=== PATIENT | female | born 1995 | race Caucasian/White ===

== ENCOUNTER 2016-08-18 19:15 | Emergency (ER) | payer OTHER ==
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
--- NOTE | 2016-08-18 20:20 | ED MED RECONCILIATION SUMMARY ---
Patient: ROHIT ROSA Medication Reconciliation Report [facility] VisitID: [id number] [address] [place] [address] 21y, F Registration Date/Time: 08/18/2016 Weight: 74.8 kg Height/Length: 66 in. BMI: 26.6 ALLERGIES: Benadryl The patient's Home Medications are listed below: NONE. The source(s) of the original Home Medication information: Not obtained. The following Medications were given to the patient in the Emergency Department: None. The following Medications were prescribed to the patient: Anuradha 60 mg tablets: take 1 orally every 12 hours as needed for itching. Dispense twenty (20). No refills. -- Amairani Falcon A.R.N.P. Kenalog 0.1% Cream: Apply to affected areas 2 times daily as needed. Dispense fifteen (15) gm. No refills. Substitution is permissible. -- Amairani Falcon A.R.N.P.
--- NOTE | 2016-08-18 20:20 | ED MAR SUMMARY ---
..... Medication Administration Record [facility] [address], [place] [id number] Patient: ROHIT ROSA Visit ID: [id number] 21y, F Weight: 74.8 kg Height/Length: 66 in BMI: 26.6 ALLERGIES: Benadryl
--- NOTE | 2016-08-18 20:20 | ED DISCHARGE INSTRUCTIONS ---
Patient: ROHIT ROSA General Instructions [facility] VisitID: [id number] [address] [place] [address] 21y, F Registration Date/Time: 08/18/2016 Irritative contact dermatitis. No urticaria. INSTRUCTIONS Warnings: GENERAL WARNINGS: Return or contact your physician immediately if your condition worsens or changes unexpectedly, if not improving as expected, or if other problems arise. Specifically return if problem worsens. Prescription Medications: Anuradha 60 mg tablets: take 1 orally every 12 hours as needed for itching. Dispense twenty (20). No refills. Kenalog 0.1% Cream: Apply to affected areas 2 times daily as needed. Dispense fifteen (15) gm. No refills. Substitution is permissible. Follow-up: Follow up with your doctor in about one week as needed. Call for an appointment. Summary of care provided to patient. Understanding of the discharge instructions verbalized by patient. ADDITIONAL INFORMATION Dermatitis (Non-Specific) Dermatitis is an inflammation of the skin. The exact cause of your rash is not certain. However, this rash does not appear to be an infection or contagious illness. Taking care of the rash at home should help relieve your symptoms. Home Care: Keep the areas of rash clean by washing it daily. This also helps to keep the skin moist. Use a neutral pH soap such as Dove or Lever 2000. Apply a moisturizing lotion after bathing to prevent dry skin. Avoid skin irritants (wool or silk clothing, grease, oils, some medicines, harsh soaps, and detergents). Wear absorbent, soft fabrics next to the skin rather than rough or scratchy materials. Unless another medicine was prescribed, you may use Hydrocortisone cream (which you can get without a prescription) to reduce the inflammation. Follow Up: Make an appointment with your doctor in the next 1 to 2 weeks if your symptoms do not improve with the above measures. Get Prompt Medical Attention if any of the following occur: Increasing area of redness or pain in the skin Yellow crusts or drainage from the rash Joint pain New rash that appears in other areas of the body Fever of 100.4F (38C) or higher, or as directed by your healthcare provider Fexofenadine Hydrochloride Oral tablet What is this medicine? FEXOFENADINE (fex oh FEN a sisi) is an antihistamine. This medicine is used to treat or prevent symptoms of allergies. It is also used to help reduce itchy skin rash and hives. How should I use this medicine? Take this medicine by mouth with a full glass of water. Follow the directions on the prescription label. You may take this medicine with food or on an empty stomach. Take your medicine at regular intervals. Do not take it more often than directed. You may need to take this medicine for several days before your symptoms improve. Talk to your daub color mixer regarding the use of this medicine in children. While this drug may be prescribed for children as young as 6 years old for selected conditions, precautions do apply. What side effects may I notice from receiving this medicine? Side effects that you should report to your doctor or health livestock caretaker as soon as possible: allergic reactions like skin rash, itching or hives, swelling of the face, lips, or tongue breathing problems chest pain fast heartbeat infection or fever Side effects that usually do not require medical attention (report to your doctor or health livestock caretaker if they continue or are bothersome): cough drowsiness dry or irritated nose, mouth, or throat headache menstrual changes pain stomach upset, nausea What may interact with this medicine? antacids erythromycin grapefruit, apple, or orange juice ketoconazole magnesium-containing products What if I miss a dose? If you miss a dose, take it as soon as you can. If it is almost time for your next dose, take only that dose. Do not take double or extra doses. Where should I keep my medicine? Keep out of the reach of children. Store at room temperature between 20 and 25 degrees C (68 and 77degrees F). Protect from moisture. Throw away any unused medicine after the expiration date. What should I tell my health care provider before I take this medicine? They need to know if you have any of these conditions: kidney disease an unusual or allergic reaction to fexofenadine, terfenadine, other medicines, foods, dyes, or preservatives or trying to get breast-feeding What should I watch for while using this medicine? Visit your doctor or health livestock caretaker for regular checks on your health. Tell your doctor or healthcare professional if your symptoms do not start to get better or if they get worse. Triamcinolone Acetonide, Distilled Water Topical cream What is this medicine? TRIAMCINOLONE (trye am SIN oh lone) is a corticosteroid. It is used on the skin to reduce swelling, redness, itching, and allergic reactions. How should I use this medicine? This medicine is for external use only. Do not take by mouth. Follow the directions on the prescription label. Wash your hands before and after use. Apply a thin film of medicine to the affected area. Do not cover with a bandage or dressing unless your doctor or health livestock caretaker tells you to. Do not use on healthy skin or over large areas of skin. Do not get this medicine in your eyes. If you do, rinse out with plenty of cool tap water. It is important not to use more medicine than prescribed. Do not use your medicine more often than directed. Talk to your daub color mixer regarding the use of this medicine in children. Special care may be needed. Elderly patients are more likely to have damaged skin through aging, and this may increase side effects. This medicine should only be used for brief periods and infrequently in older patients. What side effects may I notice from receiving this medicine? Side effects that you should report to your doctor or health livestock caretaker as soon as possible: burning or itching of the skin dark red spots on the skin infection painful, red, pus filled blisters in hair follicles thinning of the skin, sunburn more likely especially on the face Side effects that usually do not require medical attention (report to your doctor or health livestock caretaker if they continue or are bothersome): dry skin, irritation unusual increased growth of hair on the face or body What may interact with this medicine? Interactions are not expected. What if I miss a dose? If you miss a dose, use it as soon as you can. If it is almost time for your next dose, use only that dose. Do not use double or extra doses. Where should I keep my medicine? Keep out of the reach of children. Store at room temperature between 15 and 30 degrees C (59 and 86 degrees F). Do not freeze. Throw away any unused medicine after the expiration date. What should I tell my health care provider before I take this medicine? They need to know if you have any of these conditions: diabetes infection, like tuberculosis, herpes, or fungal infection large areas of burned or damaged skin skin wasting or thinning an unusual or allergic reaction to triamcinolone, corticosteroids, other medicines, foods, dyes, or preservatives or trying to get breast-feeding What should I watch for while using this medicine? Tell your doctor or health livestock caretaker if your symptoms do not start to get better within one week. Do not use for more than 14 days. Do not use on healthy skin or over large areas of skin. Tell your doctor or health livestock caretaker if you are exposed to anyone with measles or chickenpox, or if you develop sores or blisters that do not heal properly. Do not use an airtight bandage to cover the affected area unless your doctor or health livestock caretaker tells you to. If you are to cover the area, follow the instructions carefully. Covering the area where the medicine is applied can increase the amount that passes through the skin and increases the risk of side effects. If treating the diaper area of a child, avoid covering the treated area with tight-fitting diapers or plastic pants. This may increase the amount of medicine that passes through the skin and increase the risk of serious side effects. You have been given the following additional information: Dermatitis, Non-Specific Fexofenadine Hydrochloride Oral tablet Triamcinolone Acetonide, Distilled Water Topical cream (Electronically signed by Amairani Falcon A.R.NKiley 08/18/2016 20:19)
--- NOTE | 2016-08-18 20:20 | ED MAR SUMMARY ---
..... Medication Administration Record [facility] [address] [id number] Patient: ROHIT ROSA Visit ID: [id number] 21y, F Weight: 74.8 kg Height/Length: 66 in BMI: 26.6 ALLERGIES: Benadryl
--- NOTE | 2016-08-18 20:20 | ED DISCHARGE INSTRUCTIONS ---
Patient: ROHIT ROSA General Instructions [facility] VisitID: [id number] [address] [place] [address] 21y, F Registration Date/Time: 08/18/2016 Irritative contact dermatitis. No urticaria. INSTRUCTIONS Warnings: GENERAL WARNINGS: Return or contact your physician immediately if your condition worsens or changes unexpectedly, if not improving as expected, or if other problems arise. Specifically return if problem worsens. Prescription Medications: Anuradha 60 mg tablets: take 1 orally every 12 hours as needed for itching. Dispense twenty (20). No refills. Kenalog 0.1% Cream: Apply to affected areas 2 times daily as needed. Dispense fifteen (15) gm. No refills. Substitution is permissible. Follow-up: Follow up with your doctor in about one week as needed. Call for an appointment. Summary of care provided to patient. Understanding of the discharge instructions verbalized by patient. ADDITIONAL INFORMATION Dermatitis (Non-Specific) Dermatitis is an inflammation of the skin. The exact cause of your rash is not certain. However, this rash does not appear to be an infection or contagious illness. Taking care of the rash at home should help relieve your symptoms. Home Care: Keep the areas of rash clean by washing it daily. This also helps to keep the skin moist. Use a neutral pH soap such as Dove or Lever 2000. Apply a moisturizing lotion after bathing to prevent dry skin. Avoid skin irritants (wool or silk clothing, grease, oils, some medicines, harsh soaps, and detergents). Wear absorbent, soft fabrics next to the skin rather than rough or scratchy materials. Unless another medicine was prescribed, you may use Hydrocortisone cream (which you can get without a prescription) to reduce the inflammation. Follow Up: Make an appointment with your doctor in the next 1 to 2 weeks if your symptoms do not improve with the above measures. Get Prompt Medical Attention if any of the following occur: Increasing area of redness or pain in the skin Yellow crusts or drainage from the rash Joint pain New rash that appears in other areas of the body Fever of 100.4F (38C) or higher, or as directed by your healthcare provider Fexofenadine Hydrochloride Oral tablet What is this medicine? FEXOFENADINE (fex oh FEN a sisi) is an antihistamine. This medicine is used to treat or prevent symptoms of allergies. It is also used to help reduce itchy skin rash and hives. How should I use this medicine? Take this medicine by mouth with a full glass of water. Follow the directions on the prescription label. You may take this medicine with food or on an empty stomach. Take your medicine at regular intervals. Do not take it more often than directed. You may need to take this medicine for several days before your symptoms improve. Talk to your food trades assistants regarding the use of this medicine in children. While this drug may be prescribed for children as young as 6 years old for selected conditions, precautions do apply. What side effects may I notice from receiving this medicine? Side effects that you should report to your doctor or health home care nurse as soon as possible: allergic reactions like skin rash, itching or hives, swelling of the face, lips, or tongue breathing problems chest pain fast heartbeat infection or fever Side effects that usually do not require medical attention (report to your doctor or health home care nurse if they continue or are bothersome): cough drowsiness dry or irritated nose, mouth, or throat headache menstrual changes pain stomach upset, nausea What may interact with this medicine? antacids erythromycin grapefruit, apple, or orange juice ketoconazole magnesium-containing products What if I miss a dose? If you miss a dose, take it as soon as you can. If it is almost time for your next dose, take only that dose. Do not take double or extra doses. Where should I keep my medicine? Keep out of the reach of children. Store at room temperature between 20 and 25 degrees C (68 and 77degrees F). Protect from moisture. Throw away any unused medicine after the expiration date. What should I tell my health care provider before I take this medicine? They need to know if you have any of these conditions: kidney disease an unusual or allergic reaction to fexofenadine, terfenadine, other medicines, foods, dyes, or preservatives or trying to get breast-feeding What should I watch for while using this medicine? Visit your doctor or health home care nurse for regular checks on your health. Tell your doctor or healthcare professional if your symptoms do not start to get better or if they get worse. Triamcinolone Acetonide, Distilled Water Topical cream What is this medicine? TRIAMCINOLONE (trye am SIN oh lone) is a corticosteroid. It is used on the skin to reduce swelling, redness, itching, and allergic reactions. How should I use this medicine? This medicine is for external use only. Do not take by mouth. Follow the directions on the prescription label. Wash your hands before and after use. Apply a thin film of medicine to the affected area. Do not cover with a bandage or dressing unless your doctor or health home care nurse tells you to. Do not use on healthy skin or over large areas of skin. Do not get this medicine in your eyes. If you do, rinse out with plenty of cool tap water. It is important not to use more medicine than prescribed. Do not use your medicine more often than directed. Talk to your food trades assistants regarding the use of this medicine in children. Special care may be needed. Elderly patients are more likely to have damaged skin through aging, and this may increase side effects. This medicine should only be used for brief periods and infrequently in older patients. What side effects may I notice from receiving this medicine? Side effects that you should report to your doctor or health home care nurse as soon as possible: burning or itching of the skin dark red spots on the skin infection painful, red, pus filled blisters in hair follicles thinning of the skin, sunburn more likely especially on the face Side effects that usually do not require medical attention (report to your doctor or health home care nurse if they continue or are bothersome): dry skin, irritation unusual increased growth of hair on the face or body What may interact with this medicine? Interactions are not expected. What if I miss a dose? If you miss a dose, use it as soon as you can. If it is almost time for your next dose, use only that dose. Do not use double or extra doses. Where should I keep my medicine? Keep out of the reach of children. Store at room temperature between 15 and 30 degrees C (59 and 86 degrees F). Do not freeze. Throw away any unused medicine after the expiration date. What should I tell my health care provider before I take this medicine? They need to know if you have any of these conditions: diabetes infection, like tuberculosis, herpes, or fungal infection large areas of burned or damaged skin skin wasting or thinning an unusual or allergic reaction to triamcinolone, corticosteroids, other medicines, foods, dyes, or preservatives or trying to get breast-feeding What should I watch for while using this medicine? Tell your doctor or health home care nurse if your symptoms do not start to get better within one week. Do not use for more than 14 days. Do not use on healthy skin or over large areas of skin. Tell your doctor or health home care nurse if you are exposed to anyone with measles or chickenpox, or if you develop sores or blisters that do not heal properly. Do not use an airtight bandage to cover the affected area unless your doctor or health home care nurse tells you to. If you are to cover the area, follow the instructions carefully. Covering the area where the medicine is applied can increase the amount that passes through the skin and increases the risk of side effects. If treating the diaper area of a child, avoid covering the treated area with tight-fitting diapers or plastic pants. This may increase the amount of medicine that passes through the skin and increase the risk of serious side effects. You have been given the following additional information: Dermatitis, Non-Specific Fexofenadine Hydrochloride Oral tablet Triamcinolone Acetonide, Distilled Water Topical cream (Electronically signed by Amairani Falcon A.R.NKiley 08/18/2016 20:19)
--- NOTE | 2016-08-18 20:20 | ED MED RECONCILIATION SUMMARY ---
Patient: ROHIT ROSA Medication Reconciliation Report [facility] VisitID: [id number] [address] [place] [address] 21y, F Registration Date/Time: 08/18/2016 Weight: 74.8 kg Height/Length: 66 in. BMI: 26.6 ALLERGIES: Benadryl The patient's Home Medications are listed below: NONE. The source(s) of the original Home Medication information: Not obtained. The following Medications were given to the patient in the Emergency Department: None. The following Medications were prescribed to the patient: Anuradha 60 mg tablets: take 1 orally every 12 hours as needed for itching. Dispense twenty (20). No refills. -- Amairani Falcon A.R.N.P. Kenalog 0.1% Cream: Apply to affected areas 2 times daily as needed. Dispense fifteen (15) gm. No refills. Substitution is permissible. -- Amairani Falcon A.R.N.P.
== END 2016-08-18 20:06 | disposition home or self-care (01) ==
LOC: ED SRH 19:15
DX: L25.9 Unspecified contact dermatitis, unspecified cause (principal); F17.210 Nicotine dependence, cigarettes, uncomplicated; Z88.8 Allergy status to other drugs, medicaments and biological substances

== ENCOUNTER 2016-10-04 21:19 | Emergency (ER) | payer OTHER ==
--- NOTE | 2016-10-04 23:23 | DIAGNOSTIC IMAGING REPORT ---
PROCEDURE: US COMPLETE PELVIC W/TRANSVAG INDICATION: Pelvic pain TECHNIQUE: Transabdominal and endovaginal dean scale and color Doppler sonographic images of the female pelvis were obtained. COMPARISON: None. FINDINGS: TRANSABDOMINAL SCANS: Uterus is not visible. Urinary bladder is not filled. TRANSVAGINAL SCANS: The uterus is retroverted in position and has a homogeneous myometrial echotexture. It measures 5.2 x 4.4 x 4.0 cm. The endometrium is 15 mm in thickness. There is trace amount of central vascularity within the fundal endometrium, however discrete mass is not visible. A few widely scattered echogenic reflectors are present within the endometrial stripe. The right ovary measures 3.3 x 2.6 x 2.5 cm and has a normal follicular echotexture. There is normal arterial and venous ovarian flow present. The left ovary measures 2.8 x 2.0 1.5 cm and also has a normal follicular echotexture and normal vascularity. No suspicious adnexal masses or free pelvic fluid. IMPRESSION: 1. Endometrial thickness at the upper limits of normal with mild heterogeneity and central internal vascularity. Presence of vascularity may imply feeding vessels to the endometrial polyp. Consider saline sonohysterogram. 2. Normal ovaries.
--- NOTE | 2016-10-04 23:30 | ED ORDER SUMMARY ---
..... Patient: ROHIT ROSA OrderSheet [facility] VisitID: [id number] [place] [address] 21y, F Registration Date/Time: 10/04/2016 ORDER SHEET Weight: 79.3 kg Allergies: Benadryl GENERAL ORDERS: CBC w Diff Urgent (22:03 10/04/2016 EKoroleva P.A.-C) (Ack 22:05 CHagerty ER Marble Installation Helper) (23:21 CBradburn R.N.) CMP Urgent (22:03 10/04/2016 EKoroleva P.A.-C) (Ack 22:05 CHagerty ER Marble Installation Helper) (23:21 CBradburn R.N.) UA-Culture if indicated Urgent (22:03 10/04/2016 EKoroleva P.A.-C) (Ack 22:05 CHagerty ER Marble Installation Helper) (22:28 CBradburn R.N.) Serum Quantitative Urgent (22:03 10/04/2016 EKoroleva P.A.-C) (Ack 22:05 CHagerty ER Marble Installation Helper) (23:21 CBradburn R.N.) US Pelvic Complete w Transvag Urgent (22:06 10/04/2016 EKoroleva P.A.-C) (Ack 22:10 CHagerty ER Marble Installation Helper) (22:33 CBradburn R.N.) Pelvic Exam Setup (22:06 10/04/2016 EKoroleva P.A.-C) (22:33 CBradburn R.N.) MEDICATION ORDERS: IV FLUIDS: ORDER SHEET NOTES: [Electronically signed by Brittany Tanner P.A.-C (23:46 10/04/2016)] [Electronically signed by Akosua Brothers R.N. (23:58 10/04/2016)] [Electronically locked/signed by Akosua Brothers R.N. (23:58 10/04/2016)]
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
--- NOTE | 2016-10-04 23:30 | ED ORDER SUMMARY ---
..... Patient: ROHIT ROSA OrderSheet [facility] VisitID: [id number] [place] [address] 21y, F Registration Date/Time: 10/04/2016 ORDER SHEET Weight: 79.3 kg Allergies: Benadryl GENERAL ORDERS: CBC w Diff Urgent (22:03 10/04/2016 EKoroleva P.A.-C) (Ack 22:05 CHagerty ER Equestrian Trainer) (23:21 CBradburn R.N.) CMP Urgent (22:03 10/04/2016 EKoroleva P.A.-C) (Ack 22:05 CHagerty ER Equestrian Trainer) (23:21 CBradburn R.N.) UA-Culture if indicated Urgent (22:03 10/04/2016 EKoroleva P.A.-C) (Ack 22:05 CHagerty ER Equestrian Trainer) (22:28 CBradburn R.N.) Serum Quantitative Urgent (22:03 10/04/2016 EKoroleva P.A.-C) (Ack 22:05 CHagerty ER Equestrian Trainer) (23:21 CBradburn R.N.) US Pelvic Complete w Transvag Urgent (22:06 10/04/2016 EKoroleva P.A.-C) (Ack 22:10 CHagerty ER Equestrian Trainer) (22:33 CBradburn R.N.) Pelvic Exam Setup (22:06 10/04/2016 EKoroleva P.A.-C) (22:33 CBradburn R.N.) MEDICATION ORDERS: IV FLUIDS: ORDER SHEET NOTES: [Electronically signed by Brittany Tanner P.A.-C (23:46 10/04/2016)] [Electronically signed by Akosua Brothesr R.N. (23:58 10/04/2016)] [Electronically locked/signed by Akosua Brothers R.N. (23:58 10/04/2016)]
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
--- NOTE | 2016-10-05 00:02 | ED MAR SUMMARY ---
..... Medication Administration Record [facility] [address], [place] [id number] Patient: ROHIT ORSA Visit ID: [id number] 21y, F Weight: 79.3 kg Height/Length: 65 in BMI: 29.1 ALLERGIES: Benadryl
--- NOTE | 2016-10-05 00:02 | ED MAR SUMMARY ---
..... Medication Administration Record [facility] [address], [place] [id number] Patient: ROHIT ROSA Visit ID: [id number] 21y, F Weight: 79.3 kg Height/Length: 65 in BMI: 29.1 ALLERGIES: Benadryl
--- NOTE | 2016-10-05 00:02 | ED MED RECONCILIATION SUMMARY ---
Patient: ROHIT ROSA Medication Reconciliation Report [facility] VisitID: [id number] [place] [address] 21y, F Registration Date/Time: 10/04/2016 Weight: 79.3 kg Height/Length: 65 in. BMI: 29.1 ALLERGIES: Benadryl The patient's Home Medications are listed below: NONE. The source(s) of the original Home Medication information: Not obtained. The following Medications were given to the patient in the Emergency Department: None. The following Medications were prescribed to the patient: Take acetaminophen (Tylenol, Datril, etc.) and ibuprofen (Advil, Nuprin, etc.) according to label instructions. Available over the counter. -- Brittany Tanner P.A.-C
--- NOTE | 2016-10-05 00:02 | ED DISCHARGE INSTRUCTIONS ---
Patient: ROHIT ROSA General Instructions [facility] VisitID: [id number] [place] [address] 21y, F Registration Date/Time: 10/04/2016 Pelvic pain. INSTRUCTIONS Drink plenty of fluids. (your labs look great). Warnings: Further evaluation is necessary. OTC Medications: Take acetaminophen (Tylenol, Datril, etc.) and ibuprofen (Advil, Nuprin, etc.) according to label instructions. Available over the counter. Follow-up: Follow up with a specialist. Follow-up with: Burton Peacock MD, Obstetrics/Gynecology, , [facility], [address] [place] [address] Follow up. Call for the next available appointment. ADDITIONAL INFORMATION Pelvic Pain, Uncertain Cause Based on your visit today, the exact cause of your pelvic pain is not certain. But your condition does not appear to be serious at this time. However, the signs of a serious problem may take more time to appear. Therefore, it is important for you to watch for any new symptoms or worsening of your condition. Home Care: Rest until you are feeling better. Avoid sexual intercourse until your pain goes away. You may use acetaminophen (Tylenol) or ibuprofen (Motrin, Advil) to control pain, unless another medicine was prescribed. [NOTE: If you have chronic liver or kidney disease or ever had a stomach ulcer or GI bleeding, talk with your doctor before using these medicines.] Follow Up with your doctor as advised. If a culture test was taken, call in two days for the results. If the culture is positive, you will be given more advice at that time. Otherwise, follow-up with your doctor or this facility as instructed. Get Prompt Medical Attention if any of the following occur: Fever of 100.4F (38C) or higher, or as directed by your healthcare provider Vaginal discharge Worsening pain Weakness, dizziness or fainting Unexpected vaginal bleeding or passage of dean or white tissue from the vagina Pain that moves to the right lower abdomen You have been given the following additional information: Pelvic Pain, Unknown Cause (Electronically signed by Brittany Tanner P.A.-C 10/04/2016 23:46)
--- NOTE | 2016-10-05 00:02 | ED MED RECONCILIATION SUMMARY ---
Patient: ROHIT ROSA Medication Reconciliation Report [facility] VisitID: [id number] [place] [address] 21y, F Registration Date/Time: 10/04/2016 Weight: 79.3 kg Height/Length: 65 in. BMI: 29.1 ALLERGIES: Benadryl The patient's Home Medications are listed below: NONE. The source(s) of the original Home Medication information: Not obtained. The following Medications were given to the patient in the Emergency Department: None. The following Medications were prescribed to the patient: Take acetaminophen (Tylenol, Datril, etc.) and ibuprofen (Advil, Nuprin, etc.) according to label instructions. Available over the counter. -- Brittany Tanner P.A.-C
--- NOTE | 2016-10-05 00:02 | ED DISCHARGE INSTRUCTIONS ---
Patient: ROHIT ROSA General Instructions [facility] VisitID: [id number] [place] [address] 21y, F Registration Date/Time: 10/04/2016 Pelvic pain. INSTRUCTIONS Drink plenty of fluids. (your labs look great). Warnings: Further evaluation is necessary. OTC Medications: Take acetaminophen (Tylenol, Datril, etc.) and ibuprofen (Advil, Nuprin, etc.) according to label instructions. Available over the counter. Follow-up: Follow up with a specialist. Follow-up with: Burton Peacock MD, Obstetrics/Gynecology, , [facility], [address] [place] [address] Follow up. Call for the next available appointment. ADDITIONAL INFORMATION Pelvic Pain, Uncertain Cause Based on your visit today, the exact cause of your pelvic pain is not certain. But your condition does not appear to be serious at this time. However, the signs of a serious problem may take more time to appear. Therefore, it is important for you to watch for any new symptoms or worsening of your condition. Home Care: Rest until you are feeling better. Avoid sexual intercourse until your pain goes away. You may use acetaminophen (Tylenol) or ibuprofen (Motrin, Advil) to control pain, unless another medicine was prescribed. [NOTE: If you have chronic liver or kidney disease or ever had a stomach ulcer or GI bleeding, talk with your doctor before using these medicines.] Follow Up with your doctor as advised. If a culture test was taken, call in two days for the results. If the culture is positive, you will be given more advice at that time. Otherwise, follow-up with your doctor or this facility as instructed. Get Prompt Medical Attention if any of the following occur: Fever of 100.4F (38C) or higher, or as directed by your healthcare provider Vaginal discharge Worsening pain Weakness, dizziness or fainting Unexpected vaginal bleeding or passage of dean or white tissue from the vagina Pain that moves to the right lower abdomen You have been given the following additional information: Pelvic Pain, Unknown Cause (Electronically signed by Brittany Tanner P.A.-C 10/04/2016 23:46)
== END 2016-10-04 23:43 | disposition home or self-care (01) ==
LOC: ED SRH 21:19
DX: R10.2 Pelvic and perineal pain (principal); Z88.8 Allergy status to other drugs, medicaments and biological substances
CPT/HCPCS: 90004; 90074; 90100; 90197; 95059